=== PATIENT | female | born 1985 | race Caucasian/White ===

== ENCOUNTER 2018-02-08 09:11 | Emergency (ER) | payer BC, SELFPAY ==
[2018-02-08 09:12] VITALS: BP 151/94; PULSE 98; RESP 18; TEMP 36.1; O2SAT 99; BMI 25.0
--- NOTE | 2018-02-08 09:26 | ED.VISSUMM ---
- ER Visit Summary Date of Service: 02/08/18 Chief Complaint: Diarrhea History of Present Illness: The patient is a 32 F past medical history. No prior abdominal surgeries. Patient states she is had diarrhea for the last 4 days. Intermittent episodes between continuous for 4 days. Watery diarrhea. Small amount of blood in the last day or so. No clots. No vomiting. Mild nausea. No significant abdominal pain other than cramping. No true fever. She has been orally hydrating. She was seen by the [facility] urgent care nurse practitioner sent him to the ER for further evaluation. She states her mother has similar symptoms at home. She is had no recent hospitalization. She has been on no recent antibiotics. Physical Examination: Well-appearing young female. Vital signs are stable afebrile. Initial blood pressure 151/94. She does not look septic or toxic. She does not look significantly dehydrated. H EENT exam unremarkable. Moist mucous membranes. Neck nontender. No lymphadenopathy. Lungs clear to auscultation bilaterally. Heart regular rhythm no murmur. Abdomen is soft and nontender. Normal bowel sounds no peritoneal signs. Nondistended. Patient is moving all 4 extremities. They are neurovascularly intact. No edema. Neurologically she is awake and alert with no focal motor deficits. Back is nontender. Skin is unremarkable. Test Results: CBC shows a white count of 9. Hemoglobin of 15. Electrolytes show potassium of 3.3. Normal gap normal creatinine Emergency Department Course and Treatment: Patient was concerned because a nurse practitioner at the [facility] seem to think this is more than just a viral illness. She did request that I do labs. She will be given a liter of normal saline. Imodium for diarrhea. On repeat exam the patient is doing well. She was offered but refused oral Imodium here. I went over her test results with her. Treatment Plan: Imodium for diarrhea. Zofran as needed for nausea. Fluids and rest. Follow-up if not improving or return if worse. Disposition: Discharge Impression: Acute diarrhea Acute viral syndrome This note was generated with [employer] dictation software. It may contain incorrect words, spelling, and punctuation that were not noted in review of the chart prior to signing ED Disposition - Plan for ED Patient: Chief Complaint: Diarrhea Referrals: Darnell Elizabeth MD [Primary Care Provider] -
[2018-02-08] MEDS: 0.9% Normal Saline 1,000 ML 1000 ML IV (09:43)
[2018-02-08 10:04] LABS: Absolute Neutrophil Count 7.6 X10^3/uL (2.0-7.7); Basophil# 0.05 X10^3/uL; Basophil% 0.5 % (0-1); Eosinophil# 0.02 X10^3/uL; Eosinophils% 0.2 % (0-5); Hematocrit 43.5 % (37-47); Lymphocyte % 11.7 % (19-41); Mean Corp Hgb Conc 34.5 g/gl (32-36); Mean Corpuscular Hgb 30.8 pg (27.0-32.0); Mean Corpuscular Volume 89.3 fL (81-99); Mean Platelet Vol. 9.7 fl (6.2-12.0); Monocyte# 0.64 X10^3/uL; Monocyte% 6.8 % (0-10); Neutrophil # 7.57 X10^3/uL (2.7-7.7); Neutrophil % 80.6 % (47-70); Platelet Count 289 K/mm3 (150-450); RBC Distribution Width CV 11.8 % (11.6-14.6); RBC Distribution Width SD 38.4 fl (35.1-43.9); Red Blood Count 4.87 M/mm3 (4.2-5.4); White Blood Count 9.4 K/mm3 (4.4-11.0)
[2018-02-08 10:05] LABS: POSITIVE COUNT NO; POSITIVE DIFFERENTIAL NO; POSITIVE MORPHOLOGY NO
[2018-02-08 10:11] LABS: BUN 5 mg/dL (7-18); Creatinine, Serum 0.89 mg/dL (0.55-1.02); Estimated Creatinine Clearance 87.43 ml/min; Glucose 101 mg/dL (74-106)
[2018-02-08 10:12] LABS: Anion Gap 6 (5-15); BUN/Creat Ratio 5.6 RATIO (10-20); Calcium,Total 8.6 mg/dL (8.5-10.1); Chloride 107 mmol/L (98-107); EST Glomerular Filtration Rate 78 mL/min (>60); Est Glom Filt Rate - Afr Amer 94 mL/min (>60); Potassium 3.3 mmol/L (3.5-5.1); Sodium Level 138 mmol/L (136-145)
--- NOTE | 2018-02-08 10:40 | ED.DEP ---
ED Disposition - Plan for ED Patient: Disposition: Home or Assisted Living Chief Complaint: Diarrhea Instructions: ED Diarrhea Viral Prescriptions: Loperamide [Imodium] 2 mg PO Q2H PRN PRN #10 cap PRN Reason: Diarrhea Ondansetron [Zofran Odt] 4 mg PO Q8H PRN PRN #10 tab PRN Reason: Nausea Referrals: Darnell Elizabeth MD [Primary Care Provider] - 3-5 Days if not improving Additional Instructions: Plenty of fluids and rest. Zofran as needed for nausea. Imodium as needed for diarrhea. Follow-up your primary care physician if not improving or return to the ER if feeling worse.
[2018-02-08 10:43] VITALS: BP 128/87; PULSE 94; RESP 12; O2SAT 98
== END 2018-02-08 11:16 | disposition home or self-care (01) ==
PROVIDERS: Emergency Provider Emergency Medicine; Family Provider Family Medicine; PCP Family Medicine
DX: R19.7 Diarrhea, unspecified (principal); B34.9 Viral infection, unspecified
CPT/HCPCS: 80048; 85025; 96361; 96374; 99284; J7030